=== PATIENT | male | born 1985 | race Two or more races ===

== ENCOUNTER 2018-04-15 14:51 | Emergency (ER) | payer SELFPAY ==
[2018-04-15] MEDS ORDERED: ONDANSETRON ODT 4 MG TAB (6 TAB/ER DISP) PO PRN (17:07)
[2018-04-15] MEDS ORDERED: CIPROFLOXACIN HCL/DEXAMETH OTIC DROP 7.5 ML AS ONE (17:07)
--- NOTE | 2018-04-15 17:11 | ER Document Report ---
HPI - HPI Pain Level: 1 Notes: Patient is a 33-year-old male who presents with chief complaint of right ear pain times 1 day. Patient reports he feels like there is swelling in the ear and has decreased hearing. Patient denies any fever or drainage from the ear. - EENT EENT: REPORTS: Ear Pain - R ear pain Past Medical History - General Information source: Patient - Social History Smoking Status: Current Every Day Smoker Frequency of alcohol use: Rare Drug Abuse: None Family History: Reviewed & Not Pertinent Patient has suicidal ideation: No Patient has homicidal ideation: No - Medical History Medical History: Negative Renal/ Medical History: Denies: Hx Peritoneal Dialysis Past Surgical History: Reports: Hx Abdominal Surgery - cellulitis removed from lower abdomen. - Immunizations Hx Diphtheria, Pertussis, Tetanus Vaccination: Yes Vertical Provider Document - CONSTITUTIONAL Notes: PHYSICAL EXAMINATION: GENERAL: Well-appearing, well-nourished and in no acute distress. HEAD: Atraumatic, normocephalic. EYES: Pupils equal round extraocular movements intact, conjunctiva are normal. ENT: Nares patent, swelling and erythema noted to right ear canal. TM appears normal. Left ear unremarkable NECK: Normal range of motion LUNGS: No respiratory distress Musculoskeletal: Normal range of motion NEUROLOGICAL: Normal speech, normal gait. PSYCH: Normal mood, normal affect. SKIN: Warm, Dry, normal turgor, no rashes or lesions noted. - INFECTION CONTROL TRAVEL OUTSIDE OF THE [place] IN LAST 30 DAYS: No Course - Re-evaluation Re-evalutation: 04/15/18 17:08 Examination consistent with otitis externa. Patient will be placed on Ciprodex. Patient also complains of occasional nausea due to the pain. We will also send patient home with a dispense pack of Zofran. - Vital Signs Vital signs: Temp Pulse Resp BP Pulse Ox 98.2 F 77 16 134/84 H 98 04/15/18 15:36 04/15/18 15:36 04/15/18 15:36 04/15/18 15:36 04/15/18 15:36 Discharge - Discharge Clinical Impression: Nausea Otitis externa Qualifiers: Otitis externa type: unspecified type Chronicity: acute Laterality: right Qualified Code(s): H60.501 - Unspecified acute noninfective otitis externa, right ear Condition: Stable Disposition: HOME, SELF-CARE Additional Instructions: OTITIS EXTERNA: You have otitis externa -- an infection of the outer ear canal. This can be very painful. It's sometimes called "swimmer's ear," because it often occurs after prolonged water exposure. Many things, such as earwax and dirt in the ear, can contribute to it. The usual treatment is antibiotic/antiinflammatory ear drops. Occasionally , a wick will be placed in the ear to draw in the medicine. If the infection is severe, an oral antibiotic may be prescribed. Pain medication is often needed. Avoid getting water in the ear. Outer ear infections often take longer to heal than you might expect. Some tenderness and ache in the ear may persist for about two weeks. See your physician if you fail to improve as expected. Call the doctor at once if you develop fever, increasing swelling (particularly if it makes your ear "poke out"), severe headache, stiff neck, or decreased hearing. USE OF EAR DROPS: Your ear drops won't do much good if they don't get all the way in. To help the ear drops penetrate all the way to the ear drum, use the following technique. If you encounter problems of any kind, notify the physician. (1) Lay your head sideways on a pillow. (2) Place the dropper tip just barely inside the ear canal, almost touching the bottom side of the canal. The liquid is tolerated better on the bottom of the canal. (3) Squeeze out the appropriate amount of medicine, and remove the dropper. (4) Grab the back of the ear (just behind the ear canal) between your index finger and thumb. (5) Tug up, then let the ear drop back. Repeat several times. This pumps the medicine down. (6) Wait five minutes, then place a cotton ball in the ear canal to catch and hold the medicine. USING EAR DROPS WITH A WICK: A wick may be placed in your ear. This keeps the medicine in constant contact with the ear canal. You'll need to put fresh medicine into the wick. Follow these instructions. If you encounter problems of any kind, notify the physician. (1) Lay your head sideways on a pillow. (2) Place the dropper tip so it's almost touching the wick. (3) Squeeze out the appropriate amount of medicine. (4) Wait a minute for the medicine to soak in before sitting up. (5) Wipe away any extra medicine from your ear. CIPROFLOXACIN: You have been given an antibacterial agent, ciprofloxacin (Cipro). This medicine is not related to the penicillins, sulfas, cephalosporins, or tetracyclines. It is often given to patients who are allergic to these drugs. It has been chosen for you either because other drugs are not appropriate, or because of the nature of your problem. Cipro should not be taken with antacids, as these can decrease its effectiveness. It can be taken without regard to meals. CIPRO SHOULD NOT BE TAKEN BY CHILDREN, NURSING WOMEN, OR WOMEN. Although Cipro is usually well-tolerated, common side effects can include nausea and diarrhea. Contact your doctor if you experience any unusual symptoms while on this medication, such as joint pain or swelling, shortness of breath, wheezing, faintness, or hives. USE OF ACETAMINOPHEN (Tylenol): Acetaminophen may be taken for pain relief or fever control. It's much safer than aspirin, offering a wider range of "safe" dosages. It is safe during . Some brand names are Tylenol, Panadol, Datril, Anacin 3, Tempra, and Liquiprin. Acetaminophen can be repeated every four hours. The following are maximum recommended dosages: WEIGHT Dose Drops Elixir Chewable( 80mg) (LBS.) drprs=droppers tsp=teaspoon >89 pounds or adults 650 mg to 900 mg Acetaminophen can be repeated every four hours. Maximum dose not to exceed 4000 mg a day. FOLLOW-UP CARE: If you have been referred to a physician for follow-up care, call the physician s office for an appointment as you were instructed or within the next two days. If you experience worsening or a significant change in your symptoms, notify the physician immediately or return to the Emergency Department at any time for re-evaluation. A wake has been placed in the ear for assistance with antibiotic administration. Please apply 4 drops of the antibiotic Ciprodex to the ear twice daily for the next 7-10 days. Use Zofran as needed for nausea. Forms: Return to Work
[2018-04-15 17:28] VITALS: BP 119/92
== END 2018-04-15 17:34 | disposition home or self-care (01) ==
LOC: ER 14:51
DX: H60.501 Unspecified acute noninfective otitis externa, right ear (principal); H92.01 Otalgia, right ear; R11.0 Nausea; F17.200 Nicotine dependence, unspecified, uncomplicated
CPT/HCPCS: 99282; J3490